=== PATIENT | male | born 1960 | race African-American/Black ===

== ENCOUNTER 2023-05-18 15:51 | Emergency (ER) | payer OTHER, MEDICAID ==
[~2023-05-18] VITALS: Ht 182.9 cm; Wt 110.0 kg
[2023-05-18 15:57] VITALS: O2SAT 96
[2023-05-18 16:37] LABS: EOSINOPHILS % 3.9 % (0.0-5.0); HEMATOCRIT. 38.4 % (42.0-52.0); HEMOGLOBIN. 12.6 g/dL (14.0-18.0); LYMPHOCYTES % 19.3 % (20.0-50.0); MEAN CORPUSCULAR HEMOGLOBIN 29.6 pg (28.0-32.0); MEAN CORPUSCULAR HGB CONC 32.8 g/dL (31.0-37.0); MEAN CORPUSCULAR VOLUME 90.2 fL (80.0-94.0); MEAN PLATELET VOLUME 10.1 fl (7.4-10.4); MONOCYTES % 9.2 % (2.0-8.0); NEUTROPHILS % 66.6 % (40.0-76.0); PLATELET 203 x1000/uL (130-400); RED BLOOD CELL COUNT 4.26 mill/uL (4.7-6.1); RED CELL DISTRIBUTION WIDTH 13.3 % (11.6-14.6); WHITE BLOOD COUNT 8.2 x1000/uL (4.5-11.0)
[2023-05-18 16:50] LABS: ALANINE AMINOTRANSFERASE 43 IU/L (10-49); ALBUMIN 4.3 g/dL (3.2-4.8); ASPARTATE AMINOTRANSFERASE 45 IU/L (<34); BILIRUBIN TOTAL 0.6 mg/dL (0.1-1.0); CALCIUM 8.6 mg/dL (8.7-10.4); CARBON DIOXIDE 26 mEq/L (21-32); CHLORIDE 110 mEq/L (98-107); CREATININE 1.4 mg/dL (0.6-1.3); GLUCOSE 101 mg/dL (70-105); POTASSIUM 4.5 mEq/L (3.5-5.1); PROTEIN TOTAL 7.7 g/dL (6.0-8.3); SODIUM 140 mEq/L (136-145); TROPONIN I HIGH SENSITIVITY 22 ng/L (3.0-53); UREA NITROGEN BLOOD 18 mg/dL (9-23)
[2023-05-18] MEDS: FUROSEMIDE 40MG/4ML VIAL IV ONE (17:12)
[2023-05-18] MEDS: MORPHINE SULFATE 4 MG/ML INJ (FOR IV/IM USE) IV STA (17:12)
[2023-05-18] MEDS: MORPHINE SULFATE 2 MG/ML CPJ (NOT FOR IM USE) IV ONE (20:15)
[2023-05-18 20:53] VITALS: BP 158/92; PULSE 65; RESP 16; TEMP 97.9
== END 2023-05-18 22:17 | disposition left against medical advice (07) ==
LOC: ER 15:51 → CANBEDREQ 18:46 → ER 22:17
DX: R07.89 Other chest pain (principal); E11.9 Type 2 diabetes mellitus without complications; Z20.822 Contact with and (suspected) exposure to COVID-19; Z86.59 Personal history of other mental and behavioral disorders; Z86.73 Personal history of transient ischemic attack (TIA), and cerebral infarction without residual deficits
CPT/HCPCS: 80053; 83880; 83690; 85025; 84484; 36415; 71045; 93005; 96374; 99285; 87426; J1940; Z7610 ×4